=== PATIENT | female | born 1975 | race Two or more races ===

== ENCOUNTER 2024-06-17 04:14 | Inpatient (IN) | payer OTHER ==
[~2024-06-17] VITALS: Ht 157.5 cm; Wt 63.5 kg
[2024-06-17] VITALS (13 sets, daily range): BP systolic 117–125; BP diastolic 68–76; TEMP 97.2–98.3; O2SAT 96–100
[2024-06-17] MEDS ORDERED: predniSONE 50 MG TABLET ONE (04:34)
[2024-06-17] MEDS ORDERED: predniSONE 10 MG TABLET ONE (04:34)
[2024-06-17] MEDS ORDERED: IPRATROPIUM BROMIDE 0.5 MG/2.5 ML NEBU ONE (04:37)
[2024-06-17] MEDS ORDERED: ALBUTEROL SULFATE 2.5 MG/3 ML NEBU ONE ×2 (04:37→05:50)
[2024-06-17] MEDS: predniSONE 10 MG TABLET PO ONE (04:42)
[2024-06-17] MEDS: ALBUTEROL SULFATE 2.5 MG/3 ML NEBU NEB ONE ×2 (04:53→06:15)
[2024-06-17] MEDS: IPRATROPIUM BROMIDE 0.5 MG/2.5 ML NEBU NEB ONE (04:53)
[2024-06-17] MEDS ORDERED: SILVER SULFADIAZINE 1% CREAM 50 GM TP ONE (04:59)
[2024-06-17] MEDS: SILVER SULFADIAZINE 1% CREAM 50 GM TP ONE (05:05)
[2024-06-17] MEDS ORDERED: GENTAMICIN SULFATE OPHT DROP 5 ML BOTTLE ONE (05:08)
[2024-06-17] MEDS: GENTAMICIN SULFATE 0.1% OINT 15 GM TUBE TP ONE (05:16)
[2024-06-17] MEDS ORDERED: CIPROFLOXACIN 0.3% OPHT OINT 3.5 GM TUBE LEFTEYE SCH (05:30)
[2024-06-17] MEDS ORDERED: SERT100T PO (05:34)
[2024-06-17] MEDS ORDERED: CETI-194 PO (05:35)
[2024-06-17] MEDS ORDERED: ALBU2.5V13 IH (05:35)
[2024-06-17 05:54] LABS: BASOPHILS # (AUTO) 0.1 K/UL (0.0-0.2); EOSINOPHILS # (AUTO) 0.6 K/uL (0.0-0.7); HEMATOCRIT 32.5 % (31.2-41.9); HEMOGLOBIN 10.5 g/dL (10.9-14.3); LYMPHOCYTES # (AUTO) 1.3 K/uL (0.8-4.8); LYMPHOCYTES % (AUTO) 24.7 % (20.5-51.5); MEAN CORPUSCULAR HGB CONC 32 g/dL (32.3-35.6); MEAN CORPUSCULAR VOLUME 96.2 fL (75.5-95.3); MONOCYTES # (AUTO) 0.7 K/uL (0.1-1.30); MONOCYTES % (AUTO) 12.9 % (0.0-11.0); NEUTROPHILS # (AUTO) 2.6 K/uL (1.8-8.9); NEUTROPHILS % (AUTO) 49.4 % (38.5-71.5); PLATELET COUNT (AUTO) 218 K/uL (179-408); RED BLOOD CELL COUNT(AUTO) 3.37 MIL/uL (3.63-4.92); RED CELL DISTRIBUTION WIDTH 13.6 % (12.3-17.7); WHITE BLOOD COUNT (AUTO) 5.2 K/uL (3.8-11.8)
[2024-06-17 05:55] LABS: DIFFERENTIAL COMMENT 1
[2024-06-17 06:01] LABS: CALCIUM 8.7 mg/dL (8.5-10.1); CARBON DIOXIDE 26 mmol/L (21-32); CHLORIDE 104 mmol/L (98-107); CREATININE 0.5 mg/dL (0.6-1.3); GLUCOSE 101 mg/dL (74-106); POTASSIUM 4.2 mmol/L (3.5-5.1); SODIUM SERUM 140 mmol/L (136-145); UREA NITROGEN, BLOOD 6 mg/dL (7-18)
[2024-06-17 06:07] LABS: ALANINE AMINOTRANSFERASE 24 U/L (14-59); ALBUMIN 3.4 g/dL (3.4-5.0); ALKALINE PHOSPHATASE 97 U/L (50-136); ASPARTATE AMINOTRANSFERASE 15 U/L (15-37); BILIRUBIN,TOTAL 0.2 mg/dL (0.2-1.0); TOTAL PROTEIN, SERUM 6.8 g/dL (6.4-8.2)
[2024-06-17] MEDS ORDERED: ONDANSETRON 4 MG/2 ML VIAL IV PRN (07:00)
[2024-06-17] MEDS ORDERED: REMEDY ESSENTIAL ZINC PASTE 113 GM TP PRN (07:00)
[2024-06-17] MEDS ORDERED: ACETAMINOPHEN 325 MG TABLET PO PRN (07:00)
[2024-06-17] MEDS: FAMOTIDINE 20 MG TABLET PO SCH ×2 (09:25→16:36)
[2024-06-17] MEDS ORDERED: ACETAMINOPHEN 325 MG TABLET ONE (09:25)
[2024-06-17] MEDS: MONTELUKAST SODIUM 10 MG TABLET PO ONE (11:11)
[2024-06-17] MEDS: IPRATROPIUM BROMIDE 0.5 MG/2.5 ML NEBU NEB PRN (14:08)
[2024-06-17] MEDS: ALBUTEROL SULFATE 2.5 MG/3 ML NEBU NEB PRN (14:08)
[2024-06-17 14:16] LABS: *URINE HCG, QUAL NEGATIVE (NEGATIVE)
[2024-06-17] MEDS: methylPREDNISolone SOD SUCC 40 MG/ML VIAL IV SCH (14:22)
[2024-06-17] MEDS: MAGNESIUM HYDROXIDE 30 ML LIQUID UDC PO PRN (16:39)
[2024-06-17 19:15] LABS: PREGNANCY TEST SERUM QUAN 1 miul/L (0-6)
[2024-06-17] MEDS: ZOLPIDEM 5 MG TABLET PO ONE (23:16)
[2024-06-18] VITALS: BP 117/76; TEMP 97.8; O2SAT 95
[2024-06-18 06:00] VITALS: BP 110/72; TEMP 97.9; O2SAT 93
[2024-06-18 07:28] VITALS: BP 131/83; TEMP 97.7; O2SAT 95
[2024-06-18 07:31] LABS: BASOPHILS % (AUTO) 0.1 % (0.0-2.0); HEMATOCRIT 33.7 % (31.2-41.9); LYMPHOCYTES # (AUTO) 0.6 K/uL (0.8-4.8); LYMPHOCYTES % (AUTO) 7.5 % (20.5-51.5); MEAN CORPUSCULAR HEMOGLOBIN 31.6 uug (24.7-32.8); MEAN CORPUSCULAR HGB CONC 33 g/dL (32.3-35.6); MEAN CORPUSCULAR VOLUME 96.1 fL (75.5-95.3); MONOCYTES # (AUTO) 0.6 K/uL (0.1-1.30); MONOCYTES % (AUTO) 7.8 % (0.0-11.0); NEUTROPHILS # (AUTO) 6.4 K/uL (1.8-8.9); NEUTROPHILS % (AUTO) 84.6 % (38.5-71.5); PLATELET COUNT (AUTO) 263 K/uL (179-408); RED CELL DISTRIBUTION WIDTH 13.9 % (12.3-17.7); WHITE BLOOD COUNT (AUTO) 7.6 K/uL (3.8-11.8)
[2024-06-18 07:37] VITALS: O2SAT 97
[2024-06-18 07:47] VITALS: O2SAT 99
[2024-06-18 07:49] LABS: DIFFERENTIAL COMMENT 1
[2024-06-18 07:52] LABS: CALCIUM 9.3 mg/dL (8.5-10.1); CARBON DIOXIDE 27 mmol/L (21-32); CHLORIDE 103 mmol/L (98-107); CREATININE 0.5 mg/dL (0.6-1.3); GLUCOSE 141 mg/dL (74-106); MAGNESIUM 2.4 mg/dL (1.8-2.4); PHOSPHOROUS 3.4 mg/dL (2.5-4.9); POTASSIUM 4.8 mmol/L (3.5-5.1); SODIUM SERUM 138 mmol/L (136-145); UREA NITROGEN, BLOOD 4 mg/dL (7-18)
[2024-06-18 11:13] VITALS: BP 117/74; TEMP 97.9; O2SAT 95
[2024-06-18] MEDS: MAGNESIUM HYDROXIDE 30 ML LIQUID UDC PO PRN (12:32)
[2024-06-18] MEDS ORDERED: MONT10TA22 PO (13:31)
[2024-06-18] MEDS ORDERED: ALBU8.5H8 INH (13:31)
[2024-06-18] MEDS ORDERED: METH4TAB3 PO (13:31)
[2024-06-18] MEDS ORDERED: IPRA3AMP23 IH (13:31)
[2024-06-18] MEDS ORDERED: FLUT1DIS27 INH (13:31)
== END 2024-06-18 14:30 | disposition home or self-care (01) | DRG 918 ==
LOC: ER 04:19 → TELE3 09:29
PROVIDERS: ADMIT Nurse Practitioner Family; ATTEND Nurse Practitioner Family
DX: T52.0X1A Toxic effect of petroleum products, accidental (unintentional), initial encounter (principal); J45.901 Unspecified asthma with (acute) exacerbation; J68.3 Other acute and subacute respiratory conditions due to chemicals, gases, fumes and vapors; T23.661A Corrosion of second degree back of right hand, initial encounter; Y92.524 Gas station as the place of occurrence of the external cause; Z88.8 Allergy status to other drugs, medicaments and biological substances; Z98.82 Breast implant status; Z87.01 Personal history of pneumonia (recurrent); Z80.51 Family history of malignant neoplasm of kidney; Z80.8 Family history of malignant neoplasm of other organs or systems
CPT/HCPCS: 36415; 71045; 82375; 82785; 83735; 84100; 84703; 85025; 93005; 94640; A4663; G0378; J2919; J3590; J7512

== ENCOUNTER 2024-12-17 22:00 | Emergency (ER) | payer OTHER ==
[~2024-12-17] VITALS: Ht 157.5 cm; Wt 61.2 kg
[~2024-12-17 22:00] MED LIST: ALBU8.5H8 INH; CETI-194 PO; FLUT1DIS27 INH; IPRA3AMP23 IH; METH4TAB3 PO; MONT10TA22 PO; SERT100T PO
[2024-12-17] MEDS ORDERED: KETOROLAC TROMETHAMINE 30 MG INJ ONE (23:18)
[2024-12-17] MEDS ORDERED: predniSONE 20 MG TABLET ONE (23:18)
[2024-12-17] MEDS ORDERED: diphenhydrAMINE 25 MG CAP PO ONE (23:18)
[2024-12-17 23:20] LABS: *URINE HCG, QUAL POSITIVE (NEGATIVE)
[2024-12-17] MEDS ORDERED: METOCLOPRAMIDE HCL 10 MG TABLET ONE (23:25)
[2024-12-17] MEDS: METOCLOPRAMIDE HCL 10 MG TABLET PO ONE (23:33)
[2024-12-17] MEDS: KETOROLAC TROMETHAMINE 30 MG INJ IM ONE (23:33)
[2024-12-17] MEDS: predniSONE 20 MG TABLET PO ONE (23:33)
[2024-12-17] MEDS: diphenhydrAMINE 25 MG CAP PO ONE (23:33)
[2024-12-17] MEDS: IPRATROPIUM BROMIDE 0.5 MG/2.5 ML NEBU NEB ONE (23:45)
[2024-12-17] MEDS: ALBUTEROL SULFATE 2.5 MG/3 ML NEBU NEB ONE (23:45)
[2024-12-17] MEDS ORDERED: ALBUTEROL SULFATE 2.5 MG/3 ML NEBU ONE (23:48)
[2024-12-17] MEDS ORDERED: IPRATROPIUM BROMIDE 0.5 MG/2.5 ML NEBU ONE (23:48)
[2024-12-17 23:55] VITALS: O2SAT 91
[2024-12-18 00:05] VITALS: O2SAT 97
[2024-12-18] MEDS ORDERED: METH4TAB21 PO (01:40)
[2024-12-18] MEDS ORDERED: ALBU18HF2 INH (01:40)
[2024-12-18] MEDS ORDERED: METO-543 PO (01:40)
[2024-12-18] MEDS ORDERED: AZIT250T13 PO (01:40)
[2024-12-18 03:11] VITALS: BP 122/78; O2SAT 99
== END 2024-12-18 03:13 | disposition home or self-care (01) ==
LOC: ER 22:00
DX: O99.511 Diseases of the respiratory system complicating pregnancy, first trimester (principal); J18.9 Pneumonia, unspecified organism; J45.901 Unspecified asthma with (acute) exacerbation; R09.81 Nasal congestion; R11.0 Nausea; R42 Dizziness and giddiness; R51.9 Headache, unspecified; R10.2 Pelvic and perineal pain; Z79.51 Long term (current) use of inhaled steroids; Z79.899 Other long term (current) drug therapy; Z90.89 Acquired absence of other organs; Z3A.01 Less than 8 weeks gestation of pregnancy
CPT/HCPCS: 99285; 70450; 71045; 84703; 94640; 96372; 84702; 36415; 76815; J1885; Q0163; J7512; A4606; A4663; J3590; J8597

== ENCOUNTER 2025-01-28 13:38 | Emergency (ER) | payer OTHER ==
[~2025-01-28] VITALS: Ht 157.5 cm; Wt 61.2 kg
[~2025-01-28 13:38] MED LIST changes: +ALBU18HF2 INH; +AZIT250T13 PO; +METH4TAB21 PO; +METO-543 PO
[2025-01-28] MEDS ORDERED: methylPREDNISolone SOD SUCC 125 MG/2 ML VIAL ONE (14:13)
[2025-01-28] MEDS: methylPREDNISolone SOD SUCC 125 MG/2 ML VIAL IV ONE (14:14)
[2025-01-28] MEDS ORDERED: IPRATROPIUM BROMIDE 0.5 MG/2.5 ML NEBU ONE (14:17)
[2025-01-28] MEDS ORDERED: ALBUTEROL SULFATE 2.5 MG/3 ML NEBU ONE ×2 (14:17→16:10)
[2025-01-28 14:19] VITALS: O2SAT 95
[2025-01-28] MEDS: ALBUTEROL SULFATE 2.5 MG/3 ML NEBU NEB ONE ×2 (14:19→16:11)
[2025-01-28] MEDS: IPRATROPIUM BROMIDE 0.5 MG/2.5 ML NEBU NEB ONE (14:19)
[2025-01-28 14:20] LABS: BASOPHILS % (AUTO) 0.5 % (0.0-2.0); EOSINOPHILS # (AUTO) 0.8 K/uL (0.0-0.7); EOSINOPHILS % (AUTO) 8.6 % (0.0-7.0); HEMATOCRIT 36.6 % (31.2-41.9); HEMOGLOBIN 12.2 g/dL (10.9-14.3); LYMPHOCYTES # (AUTO) 0.9 K/uL (0.8-4.8); LYMPHOCYTES % (AUTO) 10.5 % (20.5-51.5); MEAN CORPUSCULAR HEMOGLOBIN 31.1 uug (24.7-32.8); MEAN CORPUSCULAR HGB CONC 33 g/dL (32.3-35.6); MEAN CORPUSCULAR VOLUME 93.7 fL (75.5-95.3); MONOCYTES # (AUTO) 0.8 K/uL (0.1-1.30); MONOCYTES % (AUTO) 8.5 % (0.0-11.0); NEUTROPHILS # (AUTO) 6.4 K/uL (1.8-8.9); NEUTROPHILS % (AUTO) 71.9 % (38.5-71.5); PLATELET COUNT (AUTO) 232 K/uL (179-408); RED BLOOD CELL COUNT(AUTO) 3.91 MIL/uL (3.63-4.92); RED CELL DISTRIBUTION WIDTH 14.5 % (12.3-17.7)
[2025-01-28 14:21] LABS: DIFFERENTIAL COMMENT 1
[2025-01-28 14:30] LABS: CALCIUM 8.8 mg/dL (8.5-10.1); CARBON DIOXIDE 28 mmol/L (21-32); CHLORIDE 102 mmol/L (98-107); CREATININE 0.5 mg/dL (0.6-1.3); GLUCOSE 139 mg/dL (74-106); POTASSIUM 3.5 mmol/L (3.5-5.1); SODIUM SERUM 141 mmol/L (136-145); UREA NITROGEN, BLOOD 11 mg/dL (7-18)
[2025-01-28 14:43] LABS: ALANINE AMINOTRANSFERASE 27 U/L (14-59); ALBUMIN 3.6 g/dL (3.4-5.0); ALKALINE PHOSPHATASE 131 U/L (50-136); ASPARTATE AMINOTRANSFERASE 23 U/L (15-37); BILIRUBIN,DIRECT 0.2 mg/dL (0.0-0.2); BILIRUBIN,TOTAL 0.5 mg/dL (0.2-1.0); NT-PRO BNP 50 pg/mL (0-125)
[2025-01-28 15:19] VITALS: O2SAT 98
[2025-01-28] MEDS ORDERED: ALPRAZOLAM 0.5 MG TABLET ONE (15:22)
[2025-01-28] MEDS: ALPRAZOLAM 0.25 MG TABLET PO ONE (15:25)
[2025-01-28] MEDS ORDERED: PRED50TA PO ×2 (16:07→21:30)
[2025-01-28] MEDS ORDERED: SERT100T PO ×2 (16:07→21:30)
[2025-01-28] MEDS ORDERED: ALBU2.5V13 NEB ×2 (16:07→21:30)
[2025-01-28] MEDS ORDERED: ALBU8.5H8 INH (16:07)
[2025-01-28 16:11] VITALS: O2SAT 93
[2025-01-28 17:11] VITALS: O2SAT 100
[2025-01-28] MEDS ORDERED: DEXT30SU87 PO (17:23)
[2025-01-28 17:30] VITALS: BP 131/88; O2SAT 100
[2025-01-28] MEDS ORDERED: ALBU18HF2 INH (21:30)
[2025-01-28] MEDS ORDERED: DEXT30SU17 PO (21:30)
== END 2025-01-28 17:30 | disposition home or self-care (01) ==
LOC: ER 13:41
DX: O26.891 Other specified pregnancy related conditions, first trimester (principal); O99.511 Diseases of the respiratory system complicating pregnancy, first trimester; R51.9 Headache, unspecified; R10.2 Pelvic and perineal pain; J45.901 Unspecified asthma with (acute) exacerbation; Z79.51 Long term (current) use of inhaled steroids; Z3A.00 Weeks of gestation of pregnancy not specified; Z79.52 Long term (current) use of systemic steroids; Z79.899 Other long term (current) drug therapy; Z90.89 Acquired absence of other organs
CPT/HCPCS: 99285; 96374; 71045; 80076; 80048; 83880; 85025; 85379; 85651; 84484; 84702; 36415; 94644; 94645; J2919; 94760; A4606; A4663; J3590

== ENCOUNTER 2025-08-15 05:36 | Emergency (ER) | payer OTHER ==
[~2025-08-15] VITALS: Ht 157.5 cm; Wt 62.6 kg
[~2025-08-15 05:36] MED LIST changes: +ALBU2.5V13 NEB; +DEXT30SU17 PO; +DEXT30SU87 PO; +PRED50TA PO
[2025-08-15 05:39] VITALS: BP 150/70
[2025-08-15] MEDS: ALBUTEROL SULFATE 2.5 MG/3 ML NEBU NEB ONE (06:00)
[2025-08-15] MEDS: IPRATROPIUM BROMIDE 0.5 MG/2.5 ML NEBU NEB ONE (06:00)
[2025-08-15] MEDS ORDERED: ALBUTEROL SULFATE 2.5 MG/3 ML NEBU ONE (06:04)
[2025-08-15] MEDS ORDERED: IPRATROPIUM BROMIDE 0.5 MG/2.5 ML NEBU ONE (06:05)
[2025-08-15 06:16] VITALS: O2SAT 96
[2025-08-15] MEDS ORDERED: ALBU18HF2 INH (07:08)
[2025-08-15] MEDS ORDERED: [UNRECOGNIZED DRUG - CODE] OP (07:08)
[2025-08-15] MEDS ORDERED: PRED20TA PO (07:08)
[2025-08-15 07:17] VITALS: BP 136/75
[2025-08-15 07:18] VITALS: O2SAT 99
[2025-08-15] MEDS ORDERED: SERT100T PO (11:37)
== END 2025-08-15 07:18 | disposition home or self-care (01) ==
LOC: ER 05:42
DX: J45.901 Unspecified asthma with (acute) exacerbation (principal); F32.A Depression, unspecified; Z79.51 Long term (current) use of inhaled steroids; Z79.52 Long term (current) use of systemic steroids; Z79.899 Other long term (current) drug therapy; Z88.7 Allergy status to serum and vaccine; Z90.89 Acquired absence of other organs; Z98.82 Breast implant status
CPT/HCPCS: 99285; 94644; J7512; A4606; A4663; J3590

== ENCOUNTER 2025-09-20 01:40 | Emergency (ER) | payer OTHER ==
[~2025-09-20] VITALS: Ht 157.5 cm; Wt 61.2 kg
[~2025-09-20 01:40] MED LIST changes: +FLUT1DIS2 INH; -FLUT1DIS27 INH; +MONT-48 PO; -MONT10TA22 PO; +PRED20TA PO; -SERT100T PO; +[UNRECOGNIZED DRUG - CODE] OP; +[UNRECOGNIZED DRUG - CODE] PO
[2025-09-20 01:42] VITALS: BP 139/96
[2025-09-20] MEDS ORDERED: ALBUTEROL SULFATE 2.5 MG/3 ML NEBU ONE (02:00)
[2025-09-20] MEDS ORDERED: IPRATROPIUM BROMIDE 0.5 MG/2.5 ML NEBU ONE (02:00)
[2025-09-20] MEDS ORDERED: ALBU18HF2 INH (02:02)
[2025-09-20] MEDS ORDERED: ALBU2.5V13 NEB (02:02)
[2025-09-20] MEDS ORDERED: FLUT1DIS2 INH (02:02)
[2025-09-20] MEDS ORDERED: PRED20TA PO (02:02)
[2025-09-20 02:10] VITALS: O2SAT 92
[2025-09-20] MEDS: IPRATROPIUM BROMIDE 0.5 MG/2.5 ML NEBU NEB ONE (02:11)
[2025-09-20] MEDS: ALBUTEROL SULFATE 2.5 MG/3 ML NEBU NEB ONE (02:11)
[2025-09-20 03:10] VITALS: O2SAT 96
[2025-09-20 03:35] VITALS: BP 132/90; O2SAT 95
== END 2025-09-20 03:37 | disposition home or self-care (01) ==
LOC: ER 01:47
DX: J45.901 Unspecified asthma with (acute) exacerbation (principal); J44.1 Chronic obstructive pulmonary disease with (acute) exacerbation; Z79.51 Long term (current) use of inhaled steroids; F32.A Depression, unspecified; Z79.52 Long term (current) use of systemic steroids; Z79.899 Other long term (current) drug therapy; Z88.7 Allergy status to serum and vaccine; Z90.89 Acquired absence of other organs; Z98.82 Breast implant status
CPT/HCPCS: 94760; A4606; A4663; J3590; J7512